=== PATIENT | female | born 1990 | race Caucasian/White ===

== ENCOUNTER 2017-07-12 19:12 | Emergency (ER) | payer OTHER ==
[2017-07-12 20:05] LABS: BASOPHILS % (AUTO) 0 % (0-3); EOSINOPHILS % (AUTO) 1 % (0-9); HEMATOCRIT 42 % (35-47); MEAN CORPUSCULAR VOLUME 87 fL (81-99); MONOCYTES % (AUTO) 5.9 % (0-12); NEUTROPHILS % (AUTO) 76.6 % (37-80)
[2017-07-12 20:15] LABS: APPEARANCE,URINE Slightly Cloudy; BILIRUBIN,URINE NEGATIVE (NEGATIVE); COLOR,URINE Yellow; GLUCOSE, URINE (UA) NEGATIVE (NEGATIVE); KETONES,URINE NEGATIVE (NEGATIVE); LEUKOCYTE ESTERASE ,URINE NEGATIVE (NEGATIVE); NITRATE,URINE NEGATIVE (NEGATIVE); OCCULT BLOOD,URINE NEGATIVE (NEG-TRACE); UROBILINOGEN,URINE 0.2 (0.2-1.0 EU)
[2017-07-12 20:29] LABS: ALBUMIN 3.5 gm/dl (3.4-5.0); ALT 29 IU/L (14-63); CALCIUM 9.2 mg/dl (8.5-10.1); GLOM FILT RATE 78 mL/min (>60); POTASSIUM 4.2 mMol/L (3.5-5.1); SALICYLATE 2.8 mg/dl (2.8-30.0); SODIUM 139 mMol/L (136-145); THYROID STIMULATING HORMONE 7.811 uIU/ml (0.358-3.740)
[2017-07-12 20:31] LABS: AMPHETAMINES POSITIVE (NEGATIVE); METHADONE NEGATIVE (NEGATIVE); OPIATES(OP13) NEGATIVE (NEGATIVE); OXYCODONE(OXY) NEGATIVE (NEGATIVE); PROPOXYPHENE(PPX) NEGATIVE (NEGATIVE); RBC,URINE NEG (0-3AV/HPF); TRICYCLIC ANTIDEPRESSANTS NEGATIVE (NEGATIVE)
[2017-07-12 21:21] VITALS: TEMP 98.3
[2017-07-13 05:40] VITALS: RESP 14
[2017-07-13 06:04] VITALS: BP 102/55; PULSE 75; O2SAT 100
== END 2017-07-13 07:15 | disposition short-term general hospital (02) | DRG 918 ==
LOC: ED 19:12
DX: T40.4X1A Poisoning by other synthetic narcotics, accidental (unintentional), initial encounter (principal); F15.10 Other stimulant abuse, uncomplicated; G89.29 Other chronic pain; M54.5 Low back pain
CPT/HCPCS: 36415; 80053; 80305; 80307; 81001; 84443; 84703; 85025; 99284; 99285